=== PATIENT | female | born 1965 | race Caucasian/White ===

== ENCOUNTER 2016-12-08 06:41 | Emergency (ER) | payer BC ==
[2016-12-08 06:52] VITALS: BP 125/74
--- NOTE | 2016-12-08 07:07 | EDM.PDOC ---
Addendum entered and electronically signed by Gary Wellington MD 01/03/17 03 :35: Addendum entered and electronically signed by Gary Wellington MD 12/08/16 07 :26: Original Note: ED HPI GENERAL MEDICAL PROBLEM - General Chief Complaint: Back Pain or Injury Stated Complaint: LOW BACK PAIN Time Seen by Provider: 12/08/16 07:07 Source of Information: Reports: Patient History Limitations: Reports: No Limitations - History of Present Illness INITIAL COMMENTS - FREE TEXT/NARRATIVE: 51-year-old female presents to the ED with acute onset of right lower mid back pain. 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 She does have pain across her lower back as well but no radicular pain into the but talks or legs. Intermittently she does have sciatica or referred pain down the legs particularly in the ileal tibial band distribution. No problems with bowel or bladder function painful to get on and off the toilet. Onset: Gradual Onset Date: 12/06/16 Duration: Hour(s): Location: Reports: Back (Right lower back.) Quality: Reports: Ache, Pressure, Sharp, Stabbing Severity: Moderate (Early pain is 7 out of 10.) Improves with: Reports: Rest Worsens with: Reports: Movement Context: Denies: Activity (Or bending walking getting out of the car etc.), Exercise, Lifting, Sick Contact, Trauma, Other Associated Symptoms: Reports: Malaise, Weakness. 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 (She took 600 mg of Motrin about 0630 hrs.) Lower Back Pain Score (Numeric/FACES): 10 - Related Data Allergies Allergy/AdvReac Type Severity Reaction Status Date / Time No Known Allergies Allergy Verified 12/08/16 06:47 Home Meds: Home Meds Cyclobenzaprine [Flexeril] 10 mg PO BEDTIME #10 tablet 12/08/16 [Rx] oxyCODONE HCl/Acetaminophen [Percocet 5-325 mg Tablet] 1 - 2 each PO Q4H PRN # 20 tablet 12/08/16 [Rx] Past Medical History HEENT History: Reports: Cataract Respiratory History: Reports: Asthma Musculoskeletal History: Reports: Back Pain, Chronic Endocrine/Metabolic History: Reports: Hypoparathyroidism - Past Surgical History HEENT Surgical History: Reports: Naso-Sinus Surgery Social & Family History - Tobacco Use Smoking Status *Q: Never Smoker - Caffeine Use Caffeine Use: Reports: Coffee, Soda - Recreational Drug Use Recreational Drug Use: No - Living Situation & Occupation Living situation: Reports: Occupation: Employed ED ROS GENERAL - Review of Systems Review Of Systems: See Below Constitutional: Reports: No Symptoms HEENT: Reports: No Symptoms Respiratory: Reports: No Symptoms Cardiovascular: Reports: No Symptoms Endocrine: Reports: No Symptoms GI/Abdominal: Reports: No Symptoms : Reports: No Symptoms Musculoskeletal: Reports: Back Pain Skin: Reports: No Symptoms (See history of present illness) Neurological: Reports: No Symptoms Psychiatric: Reports: No Symptoms Hematologic/Lymphatic: Reports: No Symptoms ED EXAM, UPPER BACK/NECK PAIN - Physical Exam Exam: See Below Exam Limited By: No Limitations General Appearance: Alert, WD/WN, No Apparent Distress Back Exam: Muscle Spasm (Marked paraspinal muscle spasm on the right side from thoracic 5 to lumbar 1. Maximal point of tenderness is over the ninth and 10th rib heads on the right side. There is no muscle spasm on the left side. She has mild tenderness over the L4-L5 facet joints bilaterally. Mild tenderness in the superior aspect of both sacroiliac joints and over the iliotibial bands bilaterally where they insert on the pelvis.) Extremities: Normal Inspection, Normal Range of Motion ( No true sciatica or nerve root irritation.), Non-Tender, No Pedal Edema Neurologic: No Motor/Sensory Deficits, Alert, Normal Mood/Affect, Oriented x 3 Psychiatric: Normal Affect, Normal Mood Skin Exam: Normal Color, Warm/Dry Lymphatic: No Adenopathy Course - Vital Signs Last Recorded V/S: Last Vital Signs Temp 36.9 C 12/08/16 06:47 Pulse 95 12/08/16 06:47 Resp 20 12/08/16 06:47 BP 125/74 12/08/16 06:47 Pulse Ox 95 12/08/16 06:47 - Orders/Labs/Meds Meds: Medications Discontinued Medications Generic Name Dose Route Start Last Admin Trade Name Freq PRN Reason Stop Dose Admin Diazepam 2 mg 12/08/16 07:14 Valium PO 12/08/16 07:15 ONETIME ONE Oxycodone/Acetaminophen 1 tab 12/08/16 07:14 Percocet 325-5 Mg PO 12/08/16 07:15 ONETIME ONE - Radiology Interpretation Free Text/Narrative:: 51-year-old female awoke with quite severe muscle spasm in her right back. She is a very busy lady and does a lot of repetitive movements in terms of cleaning lifting pushing pulling throwing uriel etc. Injury. Probably occurred 2-3 days ago. Examination shows marked paraspinal muscle spasm on the right side from thoracic 6 to L1. Point of maximal tenderness is over the ninth and 10th rib heads on the right side. She has a plan to go to a chiropractor later this morning which is a good idea to have the rib heads relocated. Start Motrin 600 mg once 6:30 hours. I will give her Percocet tablet 1 07/27/24 by mouth now with 2 mg of Valium. She may repeat Percocet tablets one or 2 every 4-6 hours needed and I gave her 20 tablets. Will use Flexeril 10 mg at at bedtime take muscle spasm 10 tablets provided. She'll continue anti-inflammatory either Aleve or Motrin as she pleases. Chiropracter should be able to make her better within a couple of days. Departure - Departure Time of Disposition: 07:25 Disposition: Home, Self-Care 01 Condition: Fair Clinical Impression: Strain of muscle and tendon of back wall of thorax, initial encounter - Discharge Information Prescriptions: Cyclobenzaprine [Flexeril] 10 mg PO BEDTIME #10 tablet oxyCODONE HCl/Acetaminophen [Percocet 5-325 mg Tablet] 1 - 2 each PO Q4H PRN # 20 tablet PRN Reason: pain relief. Referrals: Jessica Merrill PA [Primary Care Provider] - Forms: ED Department Discharge Additional Instructions: Evaluation in the ED this am due to acute onset of Rt mid lower back pain and muscle spasm. On the left side that is causing significant overlying muscle spasm. No significant facet joint inflammation was appreciated in the lumbar spine. SI joints also appeared to be within normal limits. Tight iliotibial band appreciated on outer legs by history. Treatment is anti-inflammatory such as Motrin which she took earlier this morning. Percocet tablet 1 tablet was given in the ED and second one may be repeated hour to half of still having significant pain. It's usually 1 or 2 tablets every 4-6 hours as needed until inflammation settles down. Also you were given 2 mg of Valium this morning to relieve muscle spasm but will take a good hour to work. After this may use Flexeril 10 mg at bedtime as this is quite sedating as a muscle relaxant. Continue either Motrin 600 mg every 6 hours or Aleve 2 tablets every 8 hours to relieve inflammation. Strongly suggest follow-up with chiropractor later today as planned to have the 3 rib heads relocated. May put heat packs on the area one half hour out of every 4 hours to help relieve current muscle spasm.
[2016-12-08] MEDS ORDERED: Acetaminophen/oxyCODONE 325-5 MG Tab PO ONE (07:14)
[2016-12-08] MEDS ORDERED: Diazepam 2 MG Tab PO ONE (07:14)
== END 2016-12-08 07:40 | disposition home or self-care (01) ==
LOC: JD.ED 06:41
DX: S29.012A Strain of muscle and tendon of back wall of thorax, initial encounter (principal); J45.909 Unspecified asthma, uncomplicated; X50.3XXA Overexertion from repetitive movements, initial encounter
CPT/HCPCS: 99283; A9270